=== PATIENT | male | born 1970 | race Caucasian/White ===

== ENCOUNTER 2024-07-05 18:18 | Emergency (ER) | payer OTHER, SELFPAY ==
--- OUTSIDE RECORDS SUMMARY | 2024-07-05 18:20 | XMS_ITS | Clinical Summary ---
Author Organization [facility] [address] [facility] Address [address] [place] [address] Care Team Providers Care Homicide Squad Captain Name Role Phone No, Physician Primary Care Provider [phone] Allergies No known active allergies Medications No known medications Active Problems No known active problems Social History Tobacco Use Types Packs/Day Years Used Date Smoking Tobacco: Never Personal Safety Answer Date Recorded Getting School Help Needed Not on file 08/12 Sex and Gender Information Value Date Recorded Sex Assigned at Not on file Legal Sex Male 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 Gender Identity Not on file Sexual Orientation Not on file Obstetrics History Last Filed Vital Signs Vital Sign Reading Time Taken Comments Blood Pressure 120/82 10/14/2022 5:26 PM CDT Pulse 86 10/14/2022 5:26 PM CDT Temperature 36.5 C (97.7 F) 10/14/2022 5:26 PM CDT Respiratory Rate 16 10/14/2022 5:26 PM CDT Oxygen Saturation 96% 10/14/2022 5:26 PM CDT Inhaled Oxygen Concentration - - Weight 83.5 kg (184 lb) 10/14/2022 5:26 PM CDT Height 177.8 cm (5' 10 ) 10/14/2022 5:26 PM CDT Body Mass Index 26.4 10/14/2022 5:26 PM CDT Plan of Treatment Health Maintenance Due Date Last Done Comments Colon Cancer Screening-Colonoscopy 1972 Depression Screening 1972 Hepatitis C Screening 1972 Prostate Cancer Screening-PSA 1972 DTaP/Tdap/Td Vaccine (1 - Tdap) 12/03/1983 Hepatitis B Screening 1990 Regular Well Visit/Exam 18-64 1990 Zoster Vaccine (1 of 2) 2022 Influenza Vaccine (#1) 2024 Pneumococcal vaccine <65 Aged Out No longer eligible based on patient's age to complete this topic Insurance [facility] CHO[facility] PL[facility] Care Teams Homicide Squad Captain Relationship Specialty Start Date End Date No, Physician PCP - General 10/14/22
--- OUTSIDE RECORDS SUMMARY | 2024-07-05 18:20 | XMS_ITS | Referral Summary ---
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
[2024-07-05 19:01] VITALS: BP 154/94; PULSE 102; RESP 18; TEMP 36.3; O2SAT 99
--- NOTE | 2024-07-05 19:29 | ED.EAR ---
HPI - Ear Problem General Chief complaint: Ear Stated complaint: Right Ear Problem Source: patient Mode of arrival: ambulatory Limitations: no limitations History of Present Illness HPI Narrative: 53-year-old male presented for complaint of right ear decreased hearing for 1 week. states he feels the ear feels like it is clogged with earwax, muffled hearing. Has used the debrox and hydrogen peroxide. Denies ear drainage, tinnitus, dizziness, nausea, vomiting, fevers or chills. MD Complaint: ear pain Related Data Allergies Allergy/AdvReac Type Severity Reaction Status Date / Time No Known Allergies Allergy Unverified 07/05/24 19:34 Review of Systems Review of Systems: CONSTITUTIONAL: Denies malaise, chills, or fever. EYES: Denies visual changes, redness, or discharge. ENT: Denies rhinorrhea, congestion, sinus pain, and sore throat. Reports ear pressure CARDIOVASCULAR: Denies chest pain, palpitations, or edema. RESPIRATORY: Denies cough or dyspnea. GASTROINTESTINAL: Denies abdominal pain, nausea, vomiting, diarrhea SKIN: Denies rash or itching. MUSCULOSKELETAL: Denies myalgia. NEUROLOGIC: Denies headache. All systems reviewed & are unremarkable except as noted in HPI and below PMFSH Family History Family History (Updated 10/17/18 @ 13:05 by DOCTOR UNKNOWN) Grandparent Family history of lung cancer Social History Social History Smoking status: Never smoker Alcohol intake: current Comments At time of signature, agree with nursing past medical, surgical, social and family history. There is no relevant family history pertinent to the presenting complaint Exam Narrative: GENERAL: Well-appearing EYES: PERRLA, conjunctivae clear ENT: Nares clear. Mucous membranes moist. Left TM pearly mcnamara with dull light reflex; Right TM erythematous, bulging and intact; canal not erythematous, no drainage. no tragal tenderness. Oropharynx not erythematous without lesions. Tonsils not enlarged and without exudate, no drooling, no hoarseness, no trismus, uvula midline. NECK: Supple. No lymphadenopathy CHEST: Clear to auscultation, breath sounds equal. HEART: Regular rate and rhythm. SKIN: Warm, dry, no rash. NEURO: Alert and oriented x3. PSYCH: Normal mood and affect Course Course Emergency Course: Patient is aware of diagnosis, understands and agrees to treatment plan. Anticipatory guidance given. Patient agrees to follow-up as directed and is aware of reasons to seek care at the emergency department. Portions of this record may have been created with voice recognition software Level of Care: Express Care Visit Vital Signs Vital signs: Vital Signs Temperature 97.4 F L 07/05/24 19:01 Pulse Rate 102 H 07/05/24 19:01 Respiratory Rate 18 07/05/24 19:01 Blood Pressure 154/94 H 07/05/24 19:01 Pulse Oximetry 99 07/05/24 19:01 Oxygen Delivery Room Air 07/05/24 19:01 Temperature 97.4 F L 07/05/24 19:01 Pulse Rate 102 H 07/05/24 19:01 Respiratory Rate 18 07/05/24 19:01 Blood Pressure 154/94 H 07/05/24 19:01 Pulse Oximetry 99 07/05/24 19:01 Oxygen Delivery Room Air 07/05/24 19:01 Reviewed Medical Decision Making MDM Narrative Medical decision making narrative: discussed physical exam findings consistent with right AOM. Advised supportive measures and signs/symptoms to go to the ER. Patient is appropriate for outpatient treatment and follow-up. Differential Diagnosis Differential Diagnosis: Coronavirus, strep pharyngitis, allergic rhinitis, upper respiratory tract infection, sinusitis, rhinosinusitis, nasopharyngitis, viral pharyngitis, otitis media, otitis externa, eustachian tube dysfunction, foreign body, cerumen impaction. Vital Signs Vital Signs: Vital Signs Temperature 97.4 F L 07/05/24 19:01 Pulse Rate 102 H 07/05/24 19:01 Respiratory Rate 18 07/05/24 19:01 Blood Pressure 154/94 H 07/05/24 19:01 Pulse Oximetry 99 07/05/24 19:01 Oxygen Delivery Room Air 07/05/24 19:01 Temperature 97.4 F L 07/05/24 19:01 Pulse Rate 102 H 07/05/24 19:01 Respiratory Rate 18 07/05/24 19:01 Blood Pressure 154/94 H 07/05/24 19:01 Pulse Oximetry 99 07/05/24 19:01 Oxygen Delivery Room Air 07/05/24 19:01 Discharge Plan Discharge Clinical Impression: Otitis media Qualifiers: Otitis media type: suppurative Chronicity: acute Laterality: right Recurrence: non-recurrent Spontaneous tympanic membrane rupture: without spontaneous rupture Qualified Code(s): H66.001 - Acute suppurative otitis media without spontaneous rupture of ear drum, right ear Patient Disposition: Home, Self-Care Condition: Stable Instructions: Antibiotic Form, Ear Infection (ED) Additional Instructions: Take antibiotics as directed. Recommend antihistamine such as Benadryl, Zyrtec or Mónica for sinus congestion Flonase nasal spray, 1 spray in each nostril once daily until symptoms improve Symptomatic treatment includes: rest, fluids, and increase humidity of the air at home. Tylenol 1000mg every 8 hours as needed to reduce fever, pain Please schedule a follow-up visit with your personal physician If your symptoms persist, change or worsen significantly, go to the emergency department for further evaluation. Patient Language: Spanish Prescriptions: New amoxicillin-pot clavulanate 875-125 mg tablet 1 tablet PO Q12H 7 Days Qty: 14 0RF Follow-up/Referrals: PHYSICIAN,BANK SALES AND SERVICE MANAGER [Primary Care Provider] - Time of Disposition: 19:33
== END 2024-07-05 19:37 | disposition home or self-care (01) ==
PROVIDERS: Emergency Provider Nurse Practitioner Family
DX: H66.001 Acute suppurative otitis media without spontaneous rupture of ear drum, right ear (principal)
CPT/HCPCS: 99203; G0463